=== PATIENT | female | born 1995 | race Caucasian/White ===

== ENCOUNTER 2017-05-17 04:35 | Emergency (ER) | payer MEDICAID ==
[2017-05-17 04:36] VITALS: BMI 20.7
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
[2017-05-17 06:01] LABS: BASO # 0.03 K/mm3 (0.0-2.0); BASO % 0.5 % (0.0-3.0); EOS # 0.2 (0.0-0.7); EOS % 2.5 % (1.5-5.0); GRAN # 2.22 (1.4-6.5); GRAN % 37.7 % (50.0-68.0); HEMOGLOBIN 12.5 g/dL (12.0-16.0); LYMPH # 3.1 (1.2-3.4); LYMPH % 53.2 % (22.0-35.0); MEAN CELL VOLUME 87.6 fl (80.0-105.0); MEAN CORPUSCULAR HEMOGLOBIN 28.7 pg (25.0-35.0); MEAN CORPUSCULAR HGB CONC 32.7 g/dl (31.0-37.0); MEAN PLATELET VOLUME 10.9 fl (7.0-11.0); MONO # 0.4 (0.1-0.6); MONO % 6.1 % (1.0-6.0); RBC 4.36 10^6/uL (3.5-6.1); RED CELL DISTRIBUTION WIDTH 15.4 % (11.5-14.5); WHITE BLOOD COUNT 5.9 10^3/ul (4.5-11.0)
[2017-05-17 06:03] LABS: URINE BILIRUBIN NEGATIVE (NEGATIVE); URINE BLOOD NEGATIVE (NEGATIVE); URINE GLUCOSE (UA) NEGATIVE (NEGATIVE); URINE LEUKOCYTE ESTERASE TRACE Leu/uL (NEGATIVE); URINE NITRATE NEGATIVE (NEGATIVE); URINE PROTEIN NEGATIVE mg/dL (<30 mg/dL); URINE UROBILINOGEN 0.2 E.U./dL (<1 E.U./dL)
[2017-05-17 06:09] LABS: ALB/GLOB RATIO 1.2 (1.1-1.8); ALBUMIN 4.3 g/dL (3.0-4.8); ALT/SGPT 44 U/L (7-56); AST/SGOT 32 U/L (14-36); BLOOD UREA NITROGEN 7 mg/dL (7-21); CALCIUM 10.2 mg/dL (8.4-10.5); GFR AFRICAN-AMERICAN > 60; GFR NON-AFRICAN AMERICAN > 60; URINE APPEARANCE CLEAR (CLEAR); URINE COLOR YELLOW (YELLOW)
[2017-05-17 06:10] LABS: HCG,QUALITATIVE URINE NEGATIVE (NEGATIVE)
[2017-05-17 06:11] LABS: INR 1.12 (0.93-1.08); PROTHROMBIN TIME 12.9 SECONDS (9.4-12.5)
[2017-05-17 06:32] LABS: D DIMER < 200 ng/mL (0-243)
[2017-05-17 07:05] VITALS: BP 124/83; PULSE 88; RESP 18; TEMP 97.9; O2SAT 99
[2017-05-17 07:33] LABS: URINE RBC NEGATIVE /hpf (0-2); URINE WBC 0 - 2 /hpf (0-6)
--- NOTE | 2017-05-17 08:22 | RAD ---
HISTORY: chest pain COMPARISON: None available. TECHNIQUE: Chest PA and lateral FINDINGS: LUNGS: No focal consolidation. Please note that chest x-ray has limited sensitivity for the detection of pulmonary masses. PLEURA: No significant pleural effusion identified. No definite pneumothorax . CARDIOVASCULAR: The cardiomediastinal silhouette appears within normal limits of size. OSSEOUS STRUCTURES: No acute osseous abnormality identified. VISUALIZED UPPER ABDOMEN: Unremarkable. OTHER FINDINGS: None. IMPRESSION: No focal consolidation, significant pleural effusion, or definite pneumothorax identified.
--- NOTE | 2017-05-17 08:38 | RAD ---
HISTORY: abdominal pain COMPARISON: Chest x-ray performed 05/17/17 FINDINGS: BOWEL: Nonspecific bowel gas pattern without finding to suggest obstruction. No definite free air. Mild constipation. BONES: No acute osseous abnormality is detected. OTHER FINDINGS: None. IMPRESSION: Mild constipation.
--- NOTE | 2017-05-17 16:11 | CARD ---
APPROVED REPORT EKG Measurement Heart [id number] <Conclusion> Sinus bradycardia with sinus arrhythmia ST elevation, probably due to early repolarization Borderline ECG
== END 2017-05-17 07:05 | disposition home or self-care (01) ==
LOC: ED 04:35
DX: R10.30 Lower abdominal pain, unspecified (principal); R07.89 Other chest pain

== ENCOUNTER 2017-12-31 10:27 | Emergency (ER) | payer MEDICAID ==
[2017-12-31 10:27] VITALS: BMI 20.7
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
[2017-12-31 11:27] LABS: BASO # 0.01 K/mm3 (0.0-2.0); BASO % 0.2 % (0.0-3.0); EOS # 0.2 (0.0-0.7); EOS % 2.5 % (1.5-5.0); GRAN # 3.33 (1.4-6.5); GRAN % 52.3 % (50.0-68.0); HEMOGLOBIN 14.3 g/dL (12.0-16.0); LYMPH # 2.3 (1.2-3.4); LYMPH % 36.7 % (22.0-35.0); MEAN CELL VOLUME 91.6 fl (80.0-105.0); MEAN CORPUSCULAR HEMOGLOBIN 30.6 pg (25.0-35.0); MEAN CORPUSCULAR HGB CONC 33.4 g/dl (31.0-37.0); MONO # 0.5 (0.1-0.6); MONO % 8.3 % (1.0-6.0); RBC 4.67 10^6/uL (3.5-6.1); RED CELL DISTRIBUTION WIDTH 13.7 % (11.5-14.5); WHITE BLOOD COUNT 6.4 10^3/ul (4.5-11.0)
[2017-12-31 11:36] LABS: PARTIAL THROMBOPLASTIN TIME 29.9 Seconds (25.1-36.5); PROTHROMBIN TIME 11.5 SECONDS (9.4-12.5)
[2017-12-31 11:37] LABS: ALB/GLOB RATIO 1.2 (1.1-1.8); ALBUMIN 4.4 g/dL (3.0-4.8); ALT/SGPT 33 U/L (7-56); AST/SGOT 33 U/L (14-36); BLOOD UREA NITROGEN 9 mg/dL (7-21); CALCIUM 9.4 mg/dL (8.4-10.5); GFR NON-AFRICAN AMERICAN > 60
[2017-12-31 11:39] LABS: D DIMER < 200 ng/mlDDU (0-243)
[2017-12-31 11:48] LABS: TROPONIN I < 0.01 ng/mL
[2017-12-31 12:56] VITALS: BP 114/60; PULSE 69; RESP 16; TEMP 98; O2SAT 96
--- NOTE | 2017-12-31 14:08 | RAD ---
Date of service: 12/31/2017 HISTORY: chest pain COMPARISON: 05/17/2017 TECHNIQUE: Chest PA and lateral FINDINGS: LUNGS: No active pulmonary disease. PLEURA: No significant pleural effusion identified. No pneumothorax apparent. CARDIOVASCULAR: Normal. OSSEOUS STRUCTURES: No significant abnormalities. VISUALIZED UPPER ABDOMEN: Normal. OTHER FINDINGS: None. IMPRESSION: No active disease.
--- NOTE | 2017-12-31 14:10 | CARD ---
APPROVED REPORT Date of service: 12/31/2017 EKG Measurement Heart [id number] <Conclusion> Normal sinus rhythm with sinus arrhythmia Normal ECG
== END 2017-12-31 13:00 | disposition home or self-care (01) ==
LOC: ED 10:27
DX: R07.9 Chest pain, unspecified (principal); R56.9 Unspecified convulsions
CPT/HCPCS: 71046; 80053; 82550; 83615; 83735; 84484; 85025; 85378; 85610; 85730; 93005; 96374; 99283; J1885